=== PATIENT | female | born 1945 | race Caucasian/White ===

== ENCOUNTER 2024-02-22 11:36 | Day surgery (SDC) | payer MEDICARE ==
[2024-02-16 12:30] LABS: BASOPHILS # (AUTO) 0.1 X10'3 (0-0.2); BASOPHILS % (AUTO) 0.9 % (0-1); EOSINOPHILS # (AUTO) 0.2 X10'3 (0-0.9); EOSINOPHILS % (AUTO) 3.1 % (0-6); LYMPHOCYTES # (AUTO) 1.3 X10'3 (1.1-4.8); LYMPHOCYTES % (AUTO) 21.1 % (21-51); MEAN CORPUSCULAR HEMOGLOBIN 31.5 PG (27.0-31.0); MEAN CORPUSCULAR HGB CONC 33.4 g/dL (33.0-36.5); MEAN CORPUSCULAR VOLUME 94.2 FL (78-98); MEAN PLATELET VOLUME 7.1 FL (7.4-10.4); MONOCYTES # (AUTO) 0.8 X10'3 (0-0.9); NEUTROPHILS % (AUTO) 62.9 % (42-75); PRE OP HEMOGLOBIN 13.4 g/dL (12.0-16.0); PRE OP PLATELET COUNT 246 X10'3 (140-440); PRE OP WHITE BLOOD COUNT 6.3 10'3 (4.8-10.8); RED BLOOD COUNT 4.24 X10'6 (4.20-5.60)
[2024-02-16 12:38] LABS: PRE OP PROTIME 10.3 SECONDS (9.0-12.0)
[2024-02-16 12:39] LABS: ALBUMIN 3.9 G/DL (3.4-5.0); ALBUMIN/GLOBULIN RATIO 1.1 (1.1-1.5); ALKALINE PHOSPHATASE 62 IU/L (46-116); BLOOD UREA NITROGEN 18 MG/DL (7-18); CALCIUM 8.9 MG/DL (8.5-10.1); CHLORIDE 101 MMOL/L (99-107); CREATININE 0.82 MG/DL (0.40-0.90); PRE OP ALT 28 U/L (30-65); PRE OP ANION GAP 7 (8-16); PRE OP AST 17 U/L (10-37); PRE OP BILIRUB, TOTAL 0.6 MG/DL (0.0-1.0); PRE OP GLUCOSE 117 MG/DL (70-104); PRE OP POTASSIUM 4.2 MMOL/L (3.4-5.1); PRE OP SODIUM 135 MMOL/L (135-145); TOTAL CARBON DIOXIDE 27.4 MMOL/L (24-32); TOTAL PROTEIN 7.4 G/DL (6.4-8.2); eGFR 68 ML/MIN
[~2024-02-22] VITALS: Ht 157.5 cm; Wt 76.6 kg
[2024-02-22] VITALS (11 sets, daily range): BP systolic 144–157; BP diastolic 76–96; PULSE 77–87; RESP 10–16; TEMP 97.8; O2SAT 95–100
[2024-02-22] MEDS: cefazolin 2gm/D5W 100mL 100 ML IV ONE (05:30)
[~2024-02-22 11:36] MED LIST: AMLO5TAB16 PO; BUPIVAcaine 2.5mg/ml inj 50ml vial (contains preservative) ONE; FLUO20CA39 PO; LOSA100T58 PO
[2024-02-22] MEDS: famotidine 20mg tablet PO ONE (11:50)
[2024-02-22] MEDS: ringers solution, lacted 1,000 ML IV SCH (11:56)
[2024-02-22] MEDS ORDERED: ringers solution, lacted 1,000 ML IV SCH (12:10)
[2024-02-22] MEDS ORDERED: HYDROmorphone/PF 0.2 MG/ML SYRINGE IV PRN (12:10)
[2024-02-22] MEDS ORDERED: proCHLORperazine 10 MG/2 ml inj IV PRN (12:10)
[2024-02-22] MEDS ORDERED: ondansetron/PF 4mg/2ml inj IV PRN (12:10)
[2024-02-22] MEDS ORDERED: sevoflurane 250ml liquid IH ONE (12:35)
[2024-02-22] MEDS ORDERED: fentaNYL/PF 50MCG/1 ML 2ML syringe ONE (12:42)
[2024-02-22] MEDS ORDERED: LIDOcaine 1%/PF 5ML 10 MG/ML VIAL ONE (13:24)
[2024-02-22] MEDS ORDERED: propofol inj 20 ML IV ONE (13:24)
[2024-02-22] MEDS ORDERED: ePHEDrine 50MG/ML INJ. ONE (13:24)
[2024-02-22] MEDS ORDERED: ondansetron/PF 4mg/2ml inj ONE (13:24)
[2024-02-22] MEDS ORDERED: glycopyrrolate 0.2mg/ml inj ONE (13:25)
[2024-02-22] MEDS: fentaNYL/PF 50MCG/1 ML 2ML syringe IV PRN (14:31)
[2024-02-22] MEDS: acetaminophen 1,000mg/100ml IV 100 ML IV ONE (14:32)
[2024-02-22] MEDS: BUPIVACAINE liposomal/PF 13.3 MG/ML vial IM ONE (14:40)
[2024-02-22] MEDS: LIDOcaine 1% (10mg/ml)w/preservative inj. 20ml MDV ONE (14:41)
[2024-02-22] MEDS: methylene blue (5mg/ml) 50mg/10ml ampul IV ONE (14:41)
[2024-02-22] MEDS: HYDROcodone/acetaminophen 5mg/325mg tablet PO ONE (15:04)
== END 2024-02-22 15:20 | disposition home or self-care (01) ==
LOC: PAS 11:36
PROVIDERS: ATTEND Surgery
DX: C50.012 Malignant neoplasm of nipple and areola, left female breast (principal); I10 Essential (primary) hypertension; E66.9 Obesity, unspecified; F32.A Depression, unspecified; Z87.891 Personal history of nicotine dependence; Z79.899 Other long term (current) drug therapy; Z90.710 Acquired absence of both cervix and uterus; Z96.643 Presence of artificial hip joint, bilateral; Z68.30 Body mass index [BMI] 30.0-30.9, adult; Z88.8 Allergy status to other drugs, medicaments and biological substances
CPT/HCPCS: 19301; 36415; 38525; 38900; 76098; 80053; 82948; 85025; 85610; 85730; 93005; C9290; J0131; J0690; J2405; J2704; J3010; J3490; J7120; Q9968; Z7512; Z7610; A4215; A4618; A6258; A7000